=== PATIENT | female | born 1975 ===

== ENCOUNTER 2018-08-23 00:58 | Emergency (ER) | payer MEDICAID ==
[2018-08-23 01:31] VITALS: BP 141/67
--- NOTE | 2018-08-23 01:41 | EDPHY ---
H & P Time Seen by Provider: 08/23/18 01:09 HPI/ROS: Chief complaint: Cough, productive of brownish green phlegm along with headache. HPI: This is a 43-year-old female who did get the seasonal influenza vaccine this past fall. Likewise the rest of her family did. Some 5 days ago she started with a mild sore throat and a bit of a runny nose. Overtime she started developing a cough and she is developing some brownish phlegm, but is unable to distinguish whether it is coming from her cough or postnasal drip. Nonetheless she does give a history of longstanding sinus infections and use requires antibiotics get over this. She has not checked her temperature at home but she did feel chilled and somewhat sweaty at times. Further, she has somewhat moderate body aches. At the same token this illness has been 5 days developing further. She has been having a moderate degree of headache which is somewhat unlike her. The headache is left hemicranium going up over and over to the parietal region. It is not abrupt in onset. It is somewhat different than her typical migraines. Her migraines are every 2-3 months with her mom menses. Her daughter, in her teenage years, is being to have a runny nose. Likewise, the daughter had seasonal influenza vaccine. Past history of asthma which has been quiescent of late ROS: Constitutional - no fevers though has had some subjective chills Eyes - no discharge, or injection ENT - no earache, change in hearing, difficulty swallowing, sore throat. Respiratory - No Shortness of breath, phlegm, wheezing or pleuritic chest pain. The cough is productive of brown material Musculoskeletal - no joint or muscle pain. Integument - no rashes. Neurological - the headache is somewhat typical for her migraine headaches, certainly gradual. She believes that she has run out of her Zofran which she uses for her headaches. Her typical headache pattern is every 2-3 months associated with her menses.. However, she has had no double vision or, numbness , tingling, or paresthesias. No focal motor weakness. Immunological - no swelling or lymphadenopathy A 10 system review of systems was performed and is negative except for the noted findings in the HPI. Smoking Status: Never smoked Physical Exam: Gen: Well developed, well nourished. Nontoxic. afebrile felt warm to touch however my temperature reading is 37.4 VSS HEENT: Normocephalic. Ears: TMs are clear. Hearing normal. Eyes: PERRL. No conjunctival injection or pallor. no jaundice. Nose: No nasal discharge. Sinuses are left more so than right, maxillary more so than frontal Throat: Membranes are moist. Oropharynx is without erythema or exudate. Normal phonation. Neck: Trachea is in the ML. No laryngeal tenderness. Though she reports sensitivity in her neck I do not appreciate adenopathy at this point in time Lungs: Good air entry into both lungs. No rales rhonchi or wheezes. No air hunger. No respiratory distress. Skin: Good color, without pallor. There is no diaphoresis. Skin is warm and dry , without diaphoresis. Intact without rashes Constitutional: Initial Vital Signs Temperature (C) 36.9 C 08/23/18 01:28 Heart Rate 75 08/23/18 01:28 Respiratory Rate 16 08/23/18 01:28 Blood Pressure 141/67 H 08/23/18 01:28 O2 Sat (%) 96 08/23/18 01:28 O2 Delivery Mode Room Air Allergies/Adverse Reactions: metronidazole [From Flagyl] Allergy (Verified 08/23/18 01:27) Home Medications: Medication Instructions Recorded Albuterol 5 mg/ml INH [Proventil] 08/23/18 Amox Tr/K Clav (Augmentin) 500 mg PO BID #10 tab 08/23/18 [Augmentin 500/125 MG TAB (*)] Amoxicillin Trihydrate [Amoxil] 1,500 mg PO Q12H #30 cap 08/23/18 Cetirizine [ZyrTEC 10 mg (*)] 08/23/18 Medical Decision Making ED Course/Re-evaluation: We discussed the prospect of this being sinusitis and she was anxious to start antibiotics as she has had so much trouble with that. She typically gets on Augmentin. My experience has been that the Augmentin 100/62.5 is not available at the local drug stores the so prescribed the following: Augmentin 500/125 twice daily for 5 days Amoxicillin 1500 mg twice daily for 5 days. Differential Diagnosis: Diagnostic considerations include, but are not limited to, the following: URI, sinusitis, pharyngitis, otitis media, pneumonia, allergy, influenza, strep throat. - Data Points Medications Given: Discontinued Medications Amoxicillin/Clavulanate Potassium (Augmentin 1000mg Er Tablet) 2 each PO EDNOW ONE PRN Reason: Protocol Stop: 08/23/18 01:48 Last Admin: 08/23/18 02:05 Dose: Not Given Amoxicillin/Clavulanate Potassium (Augmentin 875mg) 875 mg PO EDNOW ONE PRN Reason: Protocol Stop: 08/23/18 02:06 Last Admin: 08/23/18 02:06 Dose: 875 mg Ondansetron HCl (Zofran Odt 4 Mg Prepack#2) 1 btl TAKEHOME EDNOW ONE Stop: 08/23/18 01:46 Last Admin: 08/23/18 02:01 Dose: 1 btl Departure - Departure Disposition: Home, Routine, Self-Care Clinical Impression: Acute sinusitis Qualifiers: Sinusitis location: maxillary Recurrence: not specified as recurrent Qualified Code(s): J01.00 - Acute maxillary sinusitis, unspecified Migraine Qualifiers: Migraine type: without aura Status migrainosus presence: without status migrainosus Intractability: not intractable Qualified Code(s): G43.009 - Migraine without aura, not intractable, without status migrainosus Condition: Good Instructions: Sinusitis (ED), Migraine Headache (ED) Additional Instructions: Caution, your contagious. Please stay at home. Take the antibiotics to completed: Augmentin 500 mg twice a day for 5 days Amoxicillin 1500 mg twice a day for 5 days While on the antibiotics for the next week, take a probiotic [id number] or yogurt with active cultures. Afrin 1 spray each nostril 2 to 3 times a day for the next 3 days may also help your headache. Referrals: Patient,NotPresent [Unknown] - As per Instructions Prescriptions: Amox Tr/K Clav (Augmentin) [Augmentin 500/125 MG TAB (*)] 500 mg PO BID #10 tab Amoxicillin Trihydrate [Amoxil] 1,500 mg PO Q12H #30 cap
[2018-08-23] MEDS ORDERED: ONDANSETRON 4MG PREPACK#2 BTL TAKEHOME ONE (01:45)
[2018-08-23] MEDS ORDERED: AMOX/CLAVUL 1000 MG ER TAB PO ONE (01:47)
[2018-08-23] MEDS ORDERED: AMOXICILLIN/CLAVULANATE POT 875/125 MG TAB PO ONE ×2 (01:58→02:05)
== END 2018-08-23 02:06 | disposition home or self-care (01) ==
LOC: CED 00:58
DX: J01.00 Acute maxillary sinusitis, unspecified (principal); G43.009 Migraine without aura, not intractable, without status migrainosus